=== PATIENT | female | born 1995 | race Caucasian/White ===

== ENCOUNTER → 2019-07-24 14:36 | Outpatient (BNVA) | payer OTHER, SELFPAY | PROVIDERS: Family Provider Family Medicine; PCP Family Medicine; Referring Provider Nurse Practitioner Family; Visit Provider Nurse Practitioner Family | DX: J02.9 Acute pharyngitis, unspecified (principal); Z20.818 Contact with and (suspected) exposure to other bacterial communicable diseases | CPT/HCPCS: 87081; 87880 ==

== ENCOUNTER → 2019-08-25 10:07 | Outpatient (BNVA) | payer OTHER, SELFPAY | PROVIDERS: Family Provider Family Medicine; PCP Family Medicine; Visit Provider Family Medicine | DX: J06.9 Acute upper respiratory infection, unspecified (principal); H60.91 Unspecified otitis externa, right ear; R11.2 Nausea with vomiting, unspecified; R50.9 Fever, unspecified | CPT/HCPCS: 87804 ==

== ENCOUNTER → 2020-05-28 12:52 | Outpatient (BNVA) | payer BC, SELFPAY | PROVIDERS: Family Provider Family Medicine; PCP Family Medicine; Visit Provider Nurse Practitioner | DX: J02.9 Acute pharyngitis, unspecified (principal); H66.91 Otitis media, unspecified, right ear; J02.0 Streptococcal pharyngitis; Z68.36 Body mass index [BMI] 36.0-36.9, adult; Z71.89 Other specified counseling | CPT/HCPCS: 87071; 87880 ==

== ENCOUNTER 2022-05-07 19:13 | Emergency (ER) | payer BC, SELFPAY ==
[2022-05-07 19:34] VITALS: BP 149/114; PULSE 101; RESP 16; TEMP 36.4; O2SAT 97
--- NOTE | 2022-05-07 20:06 | ED_ITS ---
HPI - Abdominal Pain General: Chief Complaint: Abdominal Pain Stated Complaint: n/v/d, abdomen pain Time Seen by Provider: 05/07/22 19:47 History of Present Illness: Ms. Solorzano is a 26-year-old with history of tachycardia on digoxin presenting to the emergency department due to abdominal pain and GI symptoms. She reports onset of symptoms 2 days ago with recurrent episodes of nonbilious and nonbloody emesis. She has had multiple episodes of watery stools which is also nonbloody associated with this. Has epigastric and periumbilical pain without significant migration. Does have generalized abdominal aching associated with vomiting. Overall course of symptoms has worsened. Tried [id number] medications without significant relief. No other specific changes in health, exacerbating, or alleviating factors identified. Onset (ago): day(s) Pain Consistency: constant Severity: moderate Migration to: no migration Associated Symptoms: Reports diarrhea, nausea, poor appetite and vomiting Review of Systems General: Reports: 10 or more systems reviewed and unremarkable except in HPI and below GI: Reports: nausea, vomiting and diarrhea PFSH ED PFSH: Medical History (Updated 05/07/22 @ 21:51 by Nicolás Grant MD) SVT (supraventricular tachycardia) Family History Grandfather CAD (coronary artery disease) Cancer Mother Hyperlipidemia Hypertension Denies family history of Diabetes Clotting disorder Dementia Psychiatric illness Chronic kidney disease (CKD) Suicide Anesthesia complication Bleeding disorder Family history of premature coronary artery disease Lung disease Stroke Social History Smoking and tobacco status: never smoked Alcohol intake: current Alcohol intake frequency: holidays/special occasions only Alcohol type: other Physical Exam Const: COMMON NORMALS: alert GENERAL APPEARANCE: cooperative and well developed HENMT: COMMON NORMALS: normocephalic and atraumatic HEAD & SCALP: normocephalic and atraumatic Eye: COMMON NORMALS: conjunctivae normal CONJUNCTIVA: Yes conjunctivae normal SCLERA: sclerae normal Neck/C-Spine: COMMON NORMALS: supple GENERAL: Yes trachea midline Resp: COMMON NORMALS: clear to auscultation bilaterally EFFORT & INSPECTION: Yes able to speak in complete sentences AUSCULTATION: clear to auscultation bilaterally Cardio: COMMON NORMALS: regular rate and regular rhythm RATE: regular rate RHYTHM: regular rhythm GI: COMMON NORMALS: Soft to palpation PALPATION: Yes Soft to palpation, Yes Tenderness to palpation present (GI), No Guarding due to palpation present (GI) and No Rigid due to palpation PERCUSSION: normal to percussion Extremity: GENERAL: Yes normal exam except as noted and No edema Neuro: COMMON NORMALS: moves all extremities SENSORIUM/ORIENTATION: Yes alert and No Orientation impaired Psych: COMMON NORMALS: mental status grossly normal and Normal thought process present THOUGHT PROCESS: Normal thought process present Course Vital Signs: Vital signs: Vital Signs Temperature 97.5 F L 05/07/22 19:34 Pulse Rate 76 05/07/22 22:11 Respiratory Rate 17 05/07/22 22:11 Blood Pressure 123/68 05/07/22 22:11 Pulse Oximetry 96 05/07/22 22:11 Oxygen Delivery Me thod 05/07/22 19:34 MDM - Abdominal Pain Medical Decision Making 26-year-old lady presenting with GI symptoms. Patient is nontoxic in appearance and there is no evidence of acute surgical abdomen. Labs notable for mild leukocytosis, normal hemoglobin. Metabolic panel with mild dehydration. Urinalysis with squamous epithelial contamination. Patient feels improved after treatment. Offered CT which patient is comfortable foregoing at this time given risks versus benefits. The results of ED evaluation were discussed with the patient including pres criptions and/or symptomatic cares (if applicable) including appropriate and responsible use, followup plan, and return precautions. The patient verbalized understanding and felt safe for discharge. Medical Records I reviewed the patient's medical records. Lab Data I reviewed the patient's lab results. : 05/07/22 20:06 05/07/22 20:06 Labs/Radiology: Laboratory Results WBC 13.0 10^3/uL (4.0-10.0) H 05/07/22 20:06 RBC 5.06 10^6/uL (4.1-5.3) 05/07/22 20:06 Hgb 14.4 g/dL (11.5-15.3) 05/07/22 20:06 Hct 43.8 % (37.0-47.0) 05/07/22 20:06 MCV 86.6 fl (81-99) 05/07/22 20:06 MCH 28.5 pg (28.0-34.0) 05/07/22 20:06 MCHC 32.9 g/dL (30.0-36.0) 05/07/22 20:06 RDW 13.2 % (12.1-15.1) 05/07/22 20:06 Plt Count 419 10^3/cmm (130-400) H 05/07/22 20:06 MPV 9.6 fL (7.4-10.4) 05/07/22 20:06 Neut % (Auto) 67.3 % 05/07/22 20:06 Lymph % (Auto) 23.5 % 05/07/22 20:06 [place] % (Auto) 6.2 % 05/07/22 20:06 Eos % (Auto) 2.4 % 05/07/22 20:06 Baso % (Auto) 0.2 % 05/07/22 20:06 Neut # (Auto) 8.73 10^3/uL (1.8-7.7) H 05/07/22 20:06 Lymph # (Auto) 3.0 10^3/uL (0.8-4.8) 05/07/22 20:06 [place] # (Auto) 0.8 10^3/uL (0.2-0.9) 05/07/22 20:06 Eos # (Auto) 0.3 10^3/uL (0.0-0.8) 05/07/22 20:06 Baso # (Auto) 0.0 10^3/uL (0.0-0.1) 05/07/22 20:06 Nucleated RBC % (auto) 0 % 05/07/22 20:06 Nucleated RBCs # 0.0 /100WBC 05/07/22 20:06 Sodium 135 mmol/L (136-145) L 05/07/22 20:06 Potassium 3.6 mmol/L (3.5-5.1) 05/07/22 20:06 Chloride 100 mmol/L (98-107) 05/07/22 20:06 Carbon Dioxide 25 mmol/L (22-29) 05/07/22 20:06 Anion Gap 13.6 (5-19) 05/07/22 20:06 BUN 8 mg/dL (6-20) 05/07/22 20:06 Creatinine 0.6 mg/dL (0.5-0.9) 05/07/22 20:06 GFR Calculation 119.9 mL/min (90-130) 05/07/22 20:06 Glucose 82 mg/dL (65-115) 05/07/22 20:06 Calculated Osmolality 277 mOsm/kg (285-295) L 05/07/22 20:06 Calcium 9.2 mg/dL (8.5-10.5) 05/07/22 20:06 Total Bilirubin 0.5 mg/dL (0.15-1.2) 05/07/22 20:06 AST 15 U/L (0-32) 05/07/22 20:06 ALT 15 U/L (0-33) 05/07/22 20:06 Alkaline Phosphatase 101 U/L (35-105) 05/07/22 20:06 Total Protein 8.0 g/dL (6.6-8.7) 05/07/22 20:06 Albumin 4.2 g/dL (3.5-5.2) 05/07/22 20:06 Globulin 3.8 g/dL (1.3-4.6) 05/07/22 20:06 Lipase 20 U/L (13-60) 05/07/22 20:06 HCG, Qual Negative (Negative) 05/07/22 20: Urine Color Yellow (Yellow) 05/07/22 21:03 Urine Appearance Sl hazy (CLEAR) A 05/07/22 21:03 Urine pH 5 (5-7) 05/07/22 21:03 Ur Specific [place] 1.025 (1.005-1.030) 05/07/22 21:03 Urine Protein 1+ (Negative) H 05/07/22 21:03 Urine Glucose (UA) Norm (Normal) 05/07/22 21: Urine Ketones 1+ (Negative) H 05/07/22 21: Urine Blood 3+ (Negative) H 05/07/22 21:03 Urine Nitrate Negative (Negative) 05/07/22 21: Urine Bilirubin 1+ (Negative) H 05/07/22 21:03 Urine Urobilinogen 1 mg/dL (Negative) H 05/07/22 21:03 Ur Leukocyte Esterase Negative (Negative) 05/07/22 21: Urine RBC 0-4 /hpf (0-2) H 05/07/22 21:03 Urine WBC 0-4 /hpf (0-5) H 05/07/22 21:03 Ur Squamous Epith Cells 15-25 /hpf (0-5) H 05/07/22 21:03 Amorphous Sediment Not Reportable 05/07/22 21:03 Urine Bacteria 1+ /hpf (NONE) H 05/07/22 21:03 Digoxin 0.3 ng/mL (0.6-1.2) L 05/07/22 20:06 Discharge Plan Discharge Patient Disposition: Home Clinical Impression: Abdominal pain, Nausea, vomiting, and diarrhea Condition: Stable Prescriptions: New ondansetron 4 mg tablet,disintegrating 4 mg PO Q8H PRN (Reason: nausea and vomiting) Qty: 15 0RF No Action benzonatate 100 mg capsule 100 mg PO BID PRN (Reason: cough) Qty: 30 3RF bimatoprost [Latisse] 0.03 % drops with applicator 1 applic topical DAILY Qty: 3 2RF Rx Instructions: 340b metoprolol succinate [Toprol XL] 25 mg tablet extended release 24 hr 12.5 mg PO BID Qty: 90 3RF Mounjaro 2.5 mg/0.5 mL pen injector 2.5 mg SUBCUT .Weekly Qty: 2 0RF Discharge Orders: Discharge ED (Routine); Ordered 05/07/22 Ordered By: Nicolás Grant Referrals: Tim Saha MD [Primary Care Provider] - Discharge Diet: Advance as tolerated and Clear Liquid Discharge Activity: Increase activity as tolerated Patient Instructions: Acute Nausea and Vomiting (ED), Acute Diarrhea (ED), Abdominal Pain (ED), Pain Management Coding Level of Care Code ED Road Grader for Cherelle Beltre
[2022-05-07 20:13] LABS: Basophils % 0.2 %; Eosinophils # 0.3 10^3/uL (0.0-0.8); Eosinophils % 2.4 %; Hematocrit 43.8 % (37.0-47.0); Hemoglobin 14.4 g/dL (11.5-15.3); Lymphocytes % 23.5 %; Mean Corpuscular HGB Conc 32.9 g/dL (30.0-36.0); Mean Corpuscular Hemoglobin 28.5 pg (28.0-34.0); Mean Corpuscular Volume 86.6 fl (81-99); Mean Platelet Volume 9.6 fL (7.4-10.4); Monocytes # 0.8 10^3/uL (0.2-0.9); Monocytes % 6.2 %; Neutrophils # 8.73 10^3/uL (1.8-7.7); Neutrophils % 67.3 %; Nucleated Red Blood Cells % 0 %; Platelet Count 419 10^3/cmm (130-400); Red Blood Count 5.06 10^6/uL (4.1-5.3); Red Cell Distribution Width 13.2 % (12.1-15.1)
[2022-05-07] MEDS: sodium chloride 0.9% 1,000 ML 999 ML IV (20:25)
[2022-05-07] MEDS: ondansetron 2 mg/ML SDV 2 mL 4 MG IVP (20:25)
[2022-05-07 20:26] LABS: HCG, Serum Qual Negative (Negative)
[2022-05-07] MEDS: ketorolac 30 mg/mL INJ 15 MG IVP (20:27)
[2022-05-07 20:29] VITALS: RESP 17; O2SAT 96
[2022-05-07] MEDS: morphine 4 mg/mL SDV 1 mL IVP (20:29)
[2022-05-07 20:31] LABS: Alanine Aminotransferase 15 U/L (0-33); Albumin Level 4.2 g/dL (3.5-5.2); Alkaline Phosphatase 101 U/L (35-105); Blood Urea Nitrogen 8 mg/dL (6-20); Calcium 9.2 mg/dL (8.5-10.5); Carbon Dioxide 25 mmol/L (22-29); Chloride 100 mmol/L (98-107); Creatinine Clr Calc Pharmacy 149.4591; Globulin 3.8 g/dL (1.3-4.6); Glomerular Filtration Rate 119.9 mL/min (90-130); Glucose 82 mg/dL (65-115); Lipase 20 U/L (13-60); Osmolality Calculated 277 mOsm/kg (285-295); Sodium 135 mmol/L (136-145); Total Bilirubin 0.5 mg/dL (0.15-1.2)
[2022-05-07 20:48] LABS: Anion Gap 13.6 (5-19); Aspartate Amino Transferase 15 U/L (0-32); Potassium 3.6 mmol/L (3.5-5.1)
[2022-05-07 21:02] LABS: Digoxin 0.3 ng/mL (0.6-1.2)
[2022-05-07 21:37] LABS: Add Urine Culture? No; Add Urine Microscopic? YES; Bacteria Urine 1+ /hpf; Bilirubin Urine 1+ (Negative); Blood Urine 3+ (Negative); Glucose Urine UA Norm (Normal); Ketones Urine 1+ (Negative); Leukocyte Esterase Urine Negative (Negative); Nitrate Urine Negative (Negative); Protein Urine 1+ (Negative); RBC Urine 0-4 /hpf (0-2); Specific Gravity, Urine 1.025 (1.005-1.030); Squamous Epithelial Cell Urine 15-25 /hpf (0-5); Urine Appearance SL Hazy (CLEAR); Urine Color Yellow (Yellow); Urobilinogen Urine 1 mg/dL (Negative); WBC Urine 0-4 /hpf (0-5); pH Urine 5 (5-7)
[2022-05-07 22:11] VITALS: BP 123/68; PULSE 76; RESP 17; O2SAT 96
== END 2022-05-07 22:13 | disposition home or self-care (01) ==
PROVIDERS: Physician Assistant; Emergency Provider Emergency Medicine; PCP Family Medicine
DX: R10.9 Unspecified abdominal pain (principal); R11.2 Nausea with vomiting, unspecified; R19.7 Diarrhea, unspecified
CPT/HCPCS: 80053; 80162; 81001; 83690; 84703; 85025; 96361; 96374; 96375; 99284; J1885; J2270; J2405; J7030

== ENCOUNTER 2022-12-29 04:36 | Emergency (ER) | payer BC, SELFPAY ==
[2022-12-29 04:45] VITALS: BP 141/86; PULSE 75; RESP 18; O2SAT 98; BMI 31.6
[2022-12-29 04:46] VITALS: PULSE 83; RESP 20; TEMP 37; O2SAT 98
--- NOTE | 2022-12-29 05:05 | CTR_ITS ---
PROCEDURE INFORMATION: Exam: CT Abdomen And Pelvis Without Contrast Exam date and time: 12/29/2022 5:27 AM Age: 27 years old Clinical indication: Abdominal pain; Flank; Left. TECHNIQUE: Imaging protocol: Computed tomography of the abdomen and pelvis without contrast. Radiation optimization: All CT scans at this facility use at least one of these dose optimization techniques: automated exposure control; mA and/or kV adjustment per patient size (includes targeted exams where dose is matched to clinical indication); or iterative reconstruction. REPORTING DATA: Count of CT and Cardiac NM exams in prior 12 months: This patient has received 0 known CTs and 0 known cardiac nuclear medicine studies in the 12 months prior to the current study. COMPARISON: CT kidney stone [id number] 01/03/2018 7:00 AM RADIATION DOSE METRICS: Total DLP (mGy-cm): 1019.71 FINDINGS: Liver: The liver is not enlarged. There is an ill-defined focus of diminished subcapsular attenuation in segment 4B adjacent to the fissure for the falciform ligament which can be due to focal fatty change. Gallbladder and bile ducts: No calcified gallstones, gallbladder wall thickening, or pericholecystic inflammation. No biliary ductal dilation. Pancreas: No peripancreatic inflammation. No pancreatic ductal dilation. Spleen: The spleen is homogeneous and is not enlarged. Adrenal glands: No adrenal mass. Kidneys and ureters: There is right nephrolithiasis. There is mild left hydronephrosis and moderate to severe left hydroureter due to a 3 mm calculus at the left ureterovesical junction (4:91 and 6:27). Stomach and bowel: No bowel obstruction or diverticulitis. Appendix: The appendix has a normal caliber. There is gas in the lumen. No appendiceal wall thickening or periappendiceal inflammation. Intraperitoneal space: No ascites or pneumoperitoneum. Vasculature: The abdominal aorta has a normal caliber. Lymph nodes: No pathologically enlarged lymph nodes. Urinary bladder: The urinary bladder is basically empty. Reproductive: Unremarkable as visualized. Bones/joints: No acute ossesous abnormality. Soft tissues: Tiny umbilical hernia containing fat. CT/CT kidney stone [id number] IMPRESSION: 1. Obstructing 3 mm left ureterovesical junction calculus. 2. Right nephrolithiasis.
[2022-12-29 05:09] VITALS: RESP 20
[2022-12-29] MEDS: ondansetron 2 mg/ML SDV 2 mL 4 MG IVP (05:09)
[2022-12-29] MEDS: morphine 4 mg/mL SDV 1 mL IVP ×2 (05:09→05:54)
[2022-12-29 05:10] LABS: Basophils % 0.4 %; Eosinophils # 0.4 10^3/uL (0.0-0.8); Eosinophils % 3.4 %; Hematocrit 42.9 % (37.0-47.0); Hemoglobin 13.7 g/dL (11.5-15.3); Lymphocytes # 3.9 10^3/uL (0.8-4.8); Lymphocytes % 34.6 %; Mean Corpuscular HGB Conc 31.9 g/dL (30.0-36.0); Mean Corpuscular Hemoglobin 27.9 pg (28.0-34.0); Mean Corpuscular Volume 87.4 fl (81-99); Mean Platelet Volume 10.1 fL (7.4-10.4); Monocytes # 0.7 10^3/uL (0.2-0.9); Monocytes % 6.3 %; Neutrophils # 6.28 10^3/uL (1.8-7.7); Neutrophils % 55.2 %; Nucleated Red Blood Cells % 0 %; Platelet Count 372 10^3/cmm (130-400); Red Blood Count 4.91 10^6/uL (4.1-5.3); Red Cell Distribution Width 14.1 % (12.1-15.1); White Blood Count 11.4 10^3/uL (4.0-10.0)
--- NOTE | 2022-12-29 05:14 | ED_ITS ---
HPI - Female Genitourinary General: Chief complaint: Urogenital-Female Stated complaint: BACK PAIN & VOMITING Time Seen by Provider: 12/29/22 04:46 Source: patient Mode of arrival: ambulatory History of Present Illness: 27-year-old female who presents to the emergency room with complaint of left flank pain with nausea vomiting pain has been severe sharp radiating down into the groin she has a history nephrolithiasis feels similar to what she has had in the past began overnight progressively worsened she has had vomiting she denies any dysuria urgency or frequency. MD elicited complaint: difficulty urinating Onset (ago): day(s) (1) Location of symptoms: flank (Left) Severity: severe Female Urogenital Radiation: L Flank Quality of pain: sharp Consistency: constant Vaginal discharge: none Vaginal bleeding: none Urinary symptoms: Flank Pain Exacerbating factors: none Relieving factors: none Associated symptoms: Deny abdominal pain, short of breath, fevers/chills, headache(s), nausea, rash, seizures, syncope, vaginal bleeding, vaginal discharge or weakness Treatment prior to arrival: none Review of Systems Const: Denies: fever(s), chills, fatigue or malaise ENMT: Denies: throat pain, ear or mastoid pain, nasal discharge or nasal congestion Card: Denies: chest pain or syncope Resp: Denies: dyspnea, productive cough or non-productive cough GI: Denies: abdominal pain or nausea : Reports: flank pain and dysuria; Denies: hematuria or vaginal discharge Skin/Breast: Denies: rash or pruritus Neuro: Denies: headache(s) PFS ED PFSH: Medical History Morbid obesity SVT (supraventricular tachycardia) Follows with Dr Camarillo for this issue. Family History Grandfather CAD (coronary artery disease) Cancer Mother Hyperlipidemia Hypertension Denies family history of Diabetes Clotting disorder Dementia Psychiatric illness Chronic kidney disease (CKD) Suicide Anesthesia complication Bleeding disorder Family history of premature coronary artery disease Lung disease Stroke Social History Smoking and tobacco status: never smoked Alcohol intake: current Alcohol intake frequency: holidays/special occasions only Alcohol type: other Substance/Drug Use: never Physical Exam Const: GENERAL APPEARANCE: cooperative and comfortable ORIENTATION/CONSCIOUSNESS: Yes awake, Yes oriented to person, Yes oriented to place and Yes oriented to time HENMT: COMMON NORMALS: normocephalic, atraumatic and hearing grossly normal bilaterally HEAD & SCALP: normocephalic and atraumatic Resp: COMMON NORMALS: normal respiratory effort, No retractions, No use of accessory muscles and clear to auscultation bilaterally AUSCULTATION: clear to auscultation bilaterally Cardio: COMMON NORMALS: regular rate, regular rhythm and No murmurs present (Cardio) RATE: regular rate RHYTHM: regular rhythm GI: COMMON NORMALS: Soft to palpation and No hepatosplenomegaly present AUSCULTATION: Yes normoactive bowel sounds PALPATION: Yes Soft to palpation, No Tenderness to palpation present (GI), No Guarding due to palpation present (GI) and Yes No hepatosplenomegaly present : BLADDER/KIDNEY EXAM: Yes CVA tenderness SPECULUM EXAM - VAGINA: No vaginal bleeding OB/EXTERNAL & SPECULUM: No vaginal bleeding Back/Pelvis: GENERAL BACK: Yes CVA tenderness CVA tenderness: left Extremity: COMMON NORMALS: normal to inspection, capillary refill normal, no clubbing, cyanosis or edema, no calf tenderness and no pedal edema Neuro: SENSORIUM/ORIENTATION: Yes oriented to person, Yes oriented to place and Yes oriented to time Skin: COMMON NORMALS: no rashes or lesions noted GENERAL SKIN EXAM: no rashes or lesions noted Course Vital Signs: Vital signs: Vital Signs Temperature 98.6 F 12/29/22 04:46 Pulse Rate 58 L 12/29/22 05:56 Respiratory Rate 16 12/29/22 05:56 Blood Pressure 106/78 12/29/22 05:56 Pulse Oximetry 100 12/29/22 05:56 Oxygen Delivery Me thod Room Air 12/29/22 04:45 MDM - Female Medical Decision Making 3 mm distal stone. Pain is controlled. Discharge home strain urine temp she will insulin hydrocodone antiemetics as needed. We will set her up to follow-up with urology through case management. Medical Records I reviewed the patient's medical records. Lab Data I reviewed the patient's lab results. 12/29/22 04:50 12/29/22 04:50 Radiology Impressions Abdomen/Pelvis CT 12/29/22 05:05 IMPRESSION: 1. Obstructing 3 mm left ureterovesical junction calculus. 2. Right nephrolithiasis. Laboratory Results WBC 11.4 10^3/uL (4.0-10.0) H 12/29/22 04:50 RBC 4.91 10^6/uL (4.1-5.3) 12/29/22 04:50 Hgb 13.7 g/dL (11.5-15.3) 12/29/22 04:50 Hct 42.9 % (37.0-47.0) 12/29/22 04:50 MCV 87.4 fl (81-99) 12/29/22 04:50 MCH 27.9 pg (28.0-34.0) L 12/29/22 04:50 MCHC 31.9 g/dL (30.0-36.0) 12/29/22 04:50 RDW 14.1 % (12.1-15.1) 12/29/22 04:50 Plt Count 372 10^3/cmm (130-400) 12/29/22 04:50 MPV 10.1 fL (7.4-10.4) 12/29/22 04:50 Neut % (Auto) 55.2 % 12/29/22 04:50 Lymph % (Auto) 34.6 % 12/29/22 04:50 [place] % (Auto) 6.3 % 12/29/22 04:50 Eos % (Auto) 3.4 % 12/29/22 04:50 Baso % (Auto) 0.4 % 12/29/22 04:50 Neut # (Auto) 6.28 10^3/uL (1.8-7.7) 12/29/22 04:50 Lymph # (Auto) 3.9 10^3/uL (0.8-4.8) 12/29/22 04:50 [place] # (Auto) 0.7 10^3/uL (0.2-0.9) 12/29/22 04:50 Eos # (Auto) 0.4 10^3/uL (0.0-0.8) 12/29/22 04:50 Baso # (Auto) 0.0 10^3/uL (0.0-0.1) 12/29/22 04:50 Nucleated RBC % (auto) 0 % 12/29/22 04:50 Nucleated RBCs # 0.0 /100WBC 12/29/22 04:50 Sodium 138 mmol/L (136-145) 12/29/22 04:50 Potassium 3.7 mmol/L (3.5-5.1) 12/29/22 04:50 Chloride 103 mmol/L (98-107) 12/29/22 04:50 Carbon Dioxide 23 mmol/L (22-29) 12/29/22 04:50 Anion Gap 15.7 (5-19) 12/29/22 04:50 BUN 12 mg/dL (6-20) 12/29/22 04:50 Creatinine 0.5 mg/dL (0.5-0.9) 12/29/22 04:50 GFR Calculation 146.9 mL/min (90-130) H 12/29/22 04:50 Glucose 126 mg/dL (65-115) H 12/29/22 04:50 Calculated Osmolality 287 mOsm/kg (285-295) 12/29/22 04:50 Calcium 9.5 mg/dL (8.5-10.5) 12/29/22 04:50 HCG, Qual Negative (Negative) 12/29/22 04:50 Urine Color Yellow (Yellow) 12/29/22 04:47 Urine Appearance Cloudy (CLEAR) A 12/29/22 04:47 Urine pH 5 (5-7) 12/29/22 04:47 Ur Specific [place] 1.030 (1.005-1.030) 12/29/22 04:47 Urine Protein 1+ (Negative) H 12/29/22 04:47 Urine Glucose (UA) Norm (Normal) 12/29/22 04:47 Urine Ketones 1+ (Negative) H 12/29/22 04:47 Urine Blood 3+ (Negative) H 12/29/22 04:47 Urine Nitrate Negative (Negative) 12/29/22 04:47 Urine Bilirubin Neg (Negative) 12/29/22 04:47 Urine Urobilinogen 1 mg/dL (Negative) H 12/29/22 04:47 Ur Leukocyte Esterase Negative (Negative) 12/29/22 04:47 Urine RBC 25-40 /hpf (0-2) H 12/29/22 04:47 Urine WBC 0-4 /hpf (0-5) H 12/29/22 04:47 Ur Squamous Epith Cells 5-10 /hpf (0-5) H 12/29/22 04:47 Amorphous Sediment Not Reportable 12/29/22 04:47 Urine Bacteria 3+ /hpf (NONE) H 12/29/22 04:47 Urine Mucus 2+ /hpf 12/29/22 04:47 Discharge Plan Discharge Patient Disposition: Home Clinical Impression: Left nephrolithiasis Condition: Stable Prescriptions: New hydrocodone-acetaminophen 5-325 mg tablet 1 tab PO Q6H PRN (Reason: pain) Qty: 20 0RF Flomax 0.4 mg capsule 0.4 mg PO DAILY Qty: 14 0RF promethazine 25 mg tablet 25 mg PO Q6H PRN (Reason: nausea and vomiting) Qty: 10 0RF No Action digoxin 62.5 mcg (0.0625 mg) tablet 62.5 mcg PO DAILY doxycycline hyclate 100 mg tablet 100 mg PO BID 7 Days Qty: 14 0RF Discharge Orders: Discharge ED (Routine); Ordered 12/29/22 Ordered By: Grady Pillai Referrals: Tim Saha MD [Primary Care Provider] - Discharge Diet: Usual diet Discharge Activity: Increase activity as tolerated Patient Instructions: Opioid Safety, Pain Management Activity Restrictions/Additional Instructions: You are seen today for kidney stone. You have a kidney stone on the left side that is about to pass into the bladder it is a little over 3 mm and should pass on its own. Use pain medications and nausea medication as needed. Start Flomax once daily. Strain urine until stone is retrieved. Case management make arrangements for follow-up with urology. Return if your pain is uncontrolled. Coding Level of Care Code ED [employer] Press Operator for Cherelle Beltre
[2022-12-29 05:15] LABS: HCG, Serum Qual Negative (Negative)
[2022-12-29 05:23] LABS: Anion Gap 15.7 (5-19); Blood Urea Nitrogen 12 mg/dL (6-20); Calcium 9.5 mg/dL (8.5-10.5); Carbon Dioxide 23 mmol/L (22-29); Chloride 103 mmol/L (98-107); Creatinine Clr Calc Pharmacy 181.6025; Glomerular Filtration Rate 146.9 mL/min (90-130); Glucose 126 mg/dL (65-115); Osmolality Calculated 287 mOsm/kg (285-295); Potassium 3.7 mmol/L (3.5-5.1); Sodium 138 mmol/L (136-145)
[2022-12-29 05:24] LABS: Add Urine Microscopic? YES; Bacteria Urine 3+ /hpf; Bilirubin Urine Neg (Negative); Blood Urine 3+ (Negative); Glucose Urine UA Norm (Normal); Ketones Urine 1+ (Negative); Leukocyte Esterase Urine Negative (Negative); Mucus Urine 2+ /hpf; Nitrate Urine Negative (Negative); Protein Urine 1+ (Negative); RBC Urine 25-40 /hpf (0-2); Urine Appearance Cloudy (CLEAR); Urine Color Yellow (Yellow); Urobilinogen Urine 1 mg/dL (Negative); WBC Urine 0-4 /hpf (0-5); pH Urine 5 (5-7)
[2022-12-29 05:25] LABS: Add Urine Culture? Yes
[2022-12-29 05:54] VITALS: RESP 16; O2SAT 100
[2022-12-29 05:55] VITALS: BP 127/68; PULSE 65; RESP 16; O2SAT 100
[2022-12-29 05:56] VITALS: BP 106/78; PULSE 58; RESP 16; O2SAT 100
--- NOTE | 2022-12-29 11:17 | DCPLANNER ---
Addendum entered by Maylin Bishop 12/31/22 06:06: global transportation manager received the following message the urology clinic regarding follow up appointment: please send elsewhere for follow up Dr. Medina's last week. Original Note: global transportation manager had message to schedule a follow up appointment for patient with urology. global transportation manager sent patients information the front office staff at urology. Patients information will be printed and reviewed. Clinic will call patient with appointment information.
--- NOTE | 2023-01-04 08:50 | PC.SOCIAL ---
Addendum entered by Maylin Bishop 01/19/23 11:35: regional education manager called [facility] to confirm that patients information had been received. regional education manager told that patients information had been received, it will be reviewed, and clinic will call patient with appointment information. Original Note: Dr. Saha's office was able to reach patient; she does not have a preference where urology referral is faxed. Faxed to [facility] at this time.
== END 2022-12-29 06:17 | disposition home or self-care (01) ==
PROVIDERS: Emergency Provider Family Medicine; PCP Family Medicine
DX: N20.2 Calculus of kidney with calculus of ureter (principal); Z87.442 Personal history of urinary calculi
CPT/HCPCS: 74176; 80048; 81001; 84703; 85025; 87086; 96374; 96375; 96376; 99285; J2270; J2405

== ENCOUNTER → 2024-10-18 10:32 | Outpatient (BNVA) | payer BC, SELFPAY | PROVIDERS: PCP Family Medicine; Visit Provider Registered Nurse Neonatal Intensive Care | DX: J02.9 Acute pharyngitis, unspecified (principal) | CPT/HCPCS: 87880 ==

== ENCOUNTER → 2024-11-11 10:32 | Outpatient (BNVA) | payer BC, SELFPAY | PROVIDERS: PCP Family Medicine; Visit Provider Family Medicine | DX: R25.2 Cramp and spasm (principal) | CPT/HCPCS: 80048; 83735 ==

== ENCOUNTER → 2025-01-27 14:18 | Outpatient (BNVA) | payer BC, SELFPAY | PROVIDERS: PCP Family Medicine; Visit Provider Registered Nurse Neonatal Intensive Care | DX: M54.50 Low back pain, unspecified (principal) | CPT/HCPCS: 81000 ==

== ENCOUNTER → 2025-02-09 09:53 | Outpatient (BNVA) | payer BC, SELFPAY | PROVIDERS: PCP Family Medicine; Visit Provider Family Medicine | DX: R30.0 Dysuria (principal) | CPT/HCPCS: 81000; 87086 ==